=== PATIENT | male | born 1970 | race Caucasian/White ===

== ENCOUNTER 2023-08-29 14:45 | Emergency (ER) | payer OTHER ==
[~2023-08-29] VITALS: Ht 172.7 cm; Wt 93.0 kg
[2023-08-29 15:05] VITALS: BP 196/124; PULSE 116; RESP 16; O2SAT 96
== END 2023-08-29 16:45 | disposition left against medical advice (07) ==
LOC: EDH 14:45
DX: H92.03 Otalgia, bilateral (principal); Z53.21 Procedure and treatment not carried out due to patient leaving prior to being seen by health care provider
CPT/HCPCS: 99281